=== PATIENT | female | born 1995 | race Caucasian/White ===

== ENCOUNTER 2017-08-28 14:10 | Emergency (ER) | payer BC ==
[~2017-08-28] VITALS: Ht 162.6 cm; Wt 66.2 kg
[2017-08-28 14:14] VITALS: BP_SYST 118
[2017-08-28 14:48] LABS: BASOPHILS % (AUTO) 0.5 % (0.0-2.0); EOSINOPHILS % (AUTO) 0.3 % (0.0-4.0); HEMATOCRIT 40.8 % (36-48); HEMOGLOBIN 14.1 g/dL (12.0-16.0); LYMPHOCYTES % (AUTO) 16.7 % (20.5-51.5); MEAN CORPUSCULAR HEMOGLOBIN 30 pg (27-31); MEAN CORPUSCULAR HGB CONC 35 % (32-36); MEAN CORPUSCULAR VOLUME 86 fL (79.0-98.0); MONOCYTES # (AUTO) 0.5 K/uL (0.0-1.0); MONOCYTES % (AUTO) 7.7 % (1.7-9.3); NEUTROPHILS # (AUTO) 4.7 K/uL (1.8-7.7); NEUTROPHILS % (AUTO) 74.8 % (40.0-70.0); PLATELET COUNT (AUTO) 236 K/uL (130-430); RED BLOOD CELL COUNT(AUTO) 4.73 MIL/uL (4.2-6.2); RED CELL DISTRIBUTION WIDTH 12.8 % (9.0-15.0); WHITE BLOOD COUNT (AUTO) 6.2 K/uL (4.8-10.8)
== END 2017-08-28 15:33 | disposition home or self-care (01) ==
LOC: SED 14:10
DX: J02.8 Acute pharyngitis due to other specified organisms (principal); B97.89 Other viral agents as the cause of diseases classified elsewhere; R03.0 Elevated blood-pressure reading, without diagnosis of hypertension
CPT/HCPCS: 36415; 85025; 86308-TC; 99284

== ENCOUNTER 2018-10-27 19:45 | Inpatient (IN) | payer BC ==
[~2018-10-27] VITALS: Ht 162.6 cm; Wt 71.7 kg
[2018-10-27 19:58] VITALS: BP_SYST 126
--- NOTE | 2018-10-27 20:05 | NUR ---
Patient to ER bed 8 to gown for evaluation. Side rails up. Report given to Dallas SANDOVAL.
--- NOTE | 2018-10-27 20:10 | NUR ---
Pt complains of abdominal pain for the last 10 days. Pt states it started with a headache and was seen at urgent care twice and was prescribed "medications that were stronger than Aleve." Per pt, no relief. Pt states she had a fever of 100 over the weekend. Pt denies N/V. No other injuries/complaints per patient or noted.
--- NOTE | 2018-10-27 20:10 | NUR ---
Per patient, she cannot remember the last time she had a normal bowel movement. This morning, she was able to have a very small BM.
--- NOTE | 2018-10-27 20:26 | NUR ---
ER Dr. Liu at bedside examining patient.
[2018-10-27] MEDS ORDERED: ONDANSETRON HCL 4 MG/2 ML VIAL IVP ONE (20:30)
[2018-10-27] MEDS ORDERED: MORPHINE 2 MG/ML INJ. SYRINGE IVP ONE (20:30)
[2018-10-27] MEDS ORDERED: NACL 0.9% 1,000 ML IV ONE (20:30)
[2018-10-27 20:38] LABS: BILIRUBIN,URINE 2+ (NEGATIVE); BLOOD, URINE 3+ (NEGATIVE); CLARITY/URINE HAZY (CLEAR); COLOR,URINE AMBER (YELLOW); GLUCOSE,URINE NEGATIVE (NEGATIVE); KETONES,URINE 3+ (NEGATIVE); LEUKOCYTE ESTERASE ,URINE NEGATIVE (NEGATIVE); NITRITE, URINE NEGATIVE (NEGATIVE); PROTEIN URINE TRACE (NEGATIVE)
[2018-10-27 20:42] LABS: BASOPHILS # (AUTO) 0.1 K/uL (0.0-0.2); BASOPHILS % (AUTO) 0.4 % (0.0-2.0); EOSINOPHILS % (AUTO) 0.1 % (0.0-4.0); HEMATOCRIT 35.6 % (36-48); HEMOGLOBIN 12.3 g/dL (12.0-16.0); LYMPHOCYTES % (AUTO) 17.1 % (20.5-51.5); MEAN CORPUSCULAR HEMOGLOBIN 30 pg (27-31); MEAN CORPUSCULAR HGB CONC 35 % (32-36); MEAN CORPUSCULAR VOLUME 87 fL (79.0-98.0); MONOCYTES # (AUTO) 0.7 K/uL (0.0-1.0); MONOCYTES % (AUTO) 5.7 % (1.7-9.3); NEUTROPHILS # (AUTO) 8.8 K/uL (1.8-7.7); NEUTROPHILS % (AUTO) 76.7 % (40.0-70.0); PLATELET COUNT (AUTO) 304 K/uL (130-430); RED CELL DISTRIBUTION WIDTH 12.9 % (9.0-15.0); WHITE BLOOD COUNT (AUTO) 11.5 K/uL (4.8-10.8)
[2018-10-27 20:44] LABS: CALCIUM 9.1 mg/dL (8.4-11.0); CREATININE 1.03 mg/dL (0.55-1.30); POTASSIUM 4.1 mmol/L (3.5-5.1)
[2018-10-27 20:49] LABS: ALBUMIN 3.3 g/dL (3.4-4.8); TOTAL BILIRUBIN 0.6 mg/dL (0.0-1.0)
[2018-10-27 21:11] LABS: AMYLASE 37 U/L (0-100); LIPASE 92 U/L (73-393)
[2018-10-27 21:45] LABS: BACTERIA,URINE FEW /HPF (None Seen)
[2018-10-27 21:46] LABS: MUCUS,URINE None Seen /LPF (None Seen)
[2018-10-27] MEDS ORDERED: MAG HYDROX/AL HYDROX/SIMETH 30 ML, DICYCLOMINE HCL 20 MG, LIDOCAINE VISCOUS 2% 15ML (PO... PO ONE ×3 (22:45)
[2018-10-27] MEDS ORDERED: NORE1TAB92 PO (23:13)
--- NOTE | 2018-10-27 23:13 | NUR ---
Medication reconciliation completed with information provided by patient at bedside. Any prior medication reconciliation on file was reviewed and corrected.
[2018-10-28] MEDS ORDERED: LORazepam 1 MG TABLET PO PRN (00:15)
[2018-10-28] MEDS ORDERED: VANCOMYCIN HCL 1,000 MG in NS 250 ML IV ONE (00:30)
[2018-10-28] MEDS ORDERED: cefTRIAXone 1 GM IVPB PREMIX 50 ML IV ONE (00:30)
[2018-10-28] MEDS ORDERED: MORPHINE 2 MG/ML INJ. SYRINGE IVP ONE (00:45)
[2018-10-28] MEDS ORDERED: VANCOMYCIN HCL 1000 MG/VIAL IV ONE (00:57)
[2018-10-28 01:07] LABS: BASOPHILS # (AUTO) 0.4 K/uL (0.0-0.2); BASOPHILS % (AUTO) 3.7 % (0.0-2.0); EOSINOPHILS # (AUTO) 0.2 K/uL (0.0-0.4); EOSINOPHILS % (AUTO) 1.5 % (0.0-4.0); HEMATOCRIT 34.8 % (36-48); HEMOGLOBIN 12.2 g/dL (12.0-16.0); LYMPHOCYTES % (AUTO) 9.1 % (20.5-51.5); MEAN CORPUSCULAR HEMOGLOBIN 31 pg (27-31); MEAN CORPUSCULAR HGB CONC 35 % (32-36); MEAN CORPUSCULAR VOLUME 87 fL (79.0-98.0); MONOCYTES # (AUTO) 0.4 K/uL (0.0-1.0); MONOCYTES % (AUTO) 4.1 % (1.7-9.3); NEUTROPHILS # (AUTO) 8.7 K/uL (1.8-7.7); NEUTROPHILS % (AUTO) 81.6 % (40.0-70.0); PLATELET COUNT (AUTO) 261 K/uL (130-430); RED BLOOD CELL COUNT(AUTO) 3.99 MIL/uL (4.2-6.2); WHITE BLOOD COUNT (AUTO) 10.7 K/uL (4.8-10.8)
--- NOTE | 2018-10-28 01:16 | NUR ---
Transfer to [facility]. IV present no sign or symptom of infiltration.
--- NOTE | 2018-10-28 01:16 | NUR ---
Patient will be admitted to care of Dr. Le. Admitted to Med Surg unit. Will go to room 135. Belongings list completed. Summary report printed. Report will be given at bedside.
--- NOTE | 2018-10-28 01:20 | NUR ---
ADMISSION: The patient, CARLITOS GARNICA, 23 y/o, F admitted by INDER LUNSFORD MD,with the diagnosis of Abdominal Pain . to 135 , will move pt to room 101 A aftwr admission process, was given written information regarding hospital policies, unit procedures and contact persons.
[2018-10-28 01:23] VITALS: BP_SYST 114
[2018-10-28 01:29] LABS: CALCIUM 8.1 mg/dL (8.4-11.0); CREATININE 0.91 mg/dL (0.55-1.30); POTASSIUM 3.7 mmol/L (3.5-5.1)
[2018-10-28 01:44] LABS: ALBUMIN 2.8 g/dL (3.4-4.8); THYROID STIMULATING HORMONE 2.76 uIu/mL (0.36-3.74); TOTAL BILIRUBIN 0.5 mg/dL (0.0-1.0)
--- NOTE | 2018-10-28 01:52 | NUR ---
Consultation Paged Reason for Consultation: Abdominal Pain Was consult called: Y Person who was notified: Adelaida Consulting Physician: Dr. Dawson (Dr. Reza is non clinical advisor) Stock Pitcher Ordering Physician: Dr. Le
[2018-10-28] MEDS: MORPHINE 2 MG/ML INJ. SYRINGE IVP PRN ×4 (01:54→23:31)
--- NOTE | 2018-10-28 01:54 | NUR ---
Pt c/o 8/10 abdominal pain. Morphine 1mg was given IV by nurse Andreas.
[2018-10-28] MEDS ORDERED: KCL 10 mEq in D5/0.45NS 1000mL 1,000 ML IV ONE (02:01)
--- NOTE | 2018-10-28 02:30 | NUR ---
Admission physical assessment done. Pt denies pain or discomfort at this time. IV sites in RFA and LFA are without signs of infiltration. Call light is with pt and bed is in the lowest and locked positions.
[2018-10-28] MEDS: KCL 10 mEq in D5/0.45NS 1000mL 1,000 ML IV SCH ×3 (03:45→20:15)
--- NOTE | 2018-10-28 04:30 | NUR ---
Pt is asleep without any distress noted. IVF of D5 1/2NS W/ 10meq KCL is infusing well at 100ml/hr in RFA. Fall and safety precautions are in place.
--- NOTE | 2018-10-28 06:30 | NUR ---
Pt is awake and not in any distress. IVF is infusing well in RFA. Will endorse to day shift nurse.
[2018-10-28] MEDS: PANTOPRAZOLE SODIUM 40 MG TAB PO SCH (07:51)
[2018-10-28 07:56] VITALS: BP_SYST 101
--- NOTE | 2018-10-28 08:00 | NUR ---
Note Pt resting in bed has sporadic abdominal spasms - left lower abdomen radiating to the right. Pt states she will attempt to eat her clear liquids breakfast tray in a little while. No SOB/resp distress or severe abdominal pain/discomfort noted at this time. IV in right forearm intact and patent infusing IVF's well. Left forearm intact and patent at this time. No needs noted at this time. Call light within reach.
--- NOTE | 2018-10-28 10:00 | NUR ---
Note Dr Le at bedside assessing pt and writing orders. Pt ambulates with steady gait to restroom and back to bed. No needs noted at this time. Call light within reach.
--- NOTE | 2018-10-28 10:05 | NUR ---
DC Planning Assessment Wind Development Director/ Case Management: IRON BENDER met with Pt. at bed side with to conduct DC Planning Assessment family was present. Pt. is employed, resides with her family, he is ambulatory and does not utilize any DME, she attends to her own ADLs. Pt. is insured through [employer]/ [employer]. Pt. is reported that she would prefer to return home after discharge, has not previously utilized HH or SNF, no preference . Pt. is currently pending a GI evaluation. Mother Demario Kenny will be added to person to notify. Pt. and parents requested further information/communication regarding GI follow up. IRON BENDER notified the attending RN per Pts request. No further concerns or inquiry made at this time. Pt. was informed social work instructor will remain available should the need arise.
[2018-10-28 12:17] VITALS: BP_SYST 106
--- NOTE | 2018-10-28 13:30 | NUR ---
Note Pt resting in bed, parents are at bedside the last 3 hours. Questions/concerns were answered at this time. Call light within reach. No needs noted at this time.
[2018-10-28] MEDS: ACETAMINOPHEN 325 MG TABLET PO PRN (14:42)
[2018-10-28 15:56] LABS: HCG,QUAL RESULT NEGATIVE (NEGATIVE)
--- NOTE | 2018-10-28 16:10 | NUR ---
Note Dr Tan came to pt's bedside and assessment was done. Pt and pt's parents' questions/concerns were answered at this time. Orders written and carried out at this time. UA for test was sent to lab at this time. No needs noted at this time. Call light within reach.
[2018-10-28 16:35] VITALS: BP_SYST 97
[2018-10-28] MEDS: LEVOFLOXACIN 500 MG/D5W 100 ML IV SCH (16:46)
[2018-10-28] MEDS: ONDANSETRON HCL 4 MG/2 ML VIAL IVP PRN ×2 (18:21→23:28)
--- NOTE | 2018-10-28 18:35 | NUR ---
Note Pt resting in bed with IVF's infusing well through right hand IV site. Left IV intact and patent at this time. No SOB/resp distress or pain/discomfort noted at this time. Pt was checked on q1' and PRN all shift for needs and care. No needs noted at this time. Call light within reach. Pt transferred to room 107A from room 101A at this time.
--- NOTE | 2018-10-28 19:20 | NUR ---
OPENING NOTES Pt and endorsement received from day shift nurse. Pt is AAOx4, lying in bed. Pt on IVF with D5,0.45NS with 10mEq of KCL at 100ml/hr and infusing well on right FA G22. Pt on saline lock on left FA G20. No complains of pain or discomfort at this time. No signs of acute distress or SOB noted. Encouraged to use call light when needed. Safety precautions in place with 2 side rails up, wheels locked, and bed in lowest level. Call light with pt. Will continue to monitor.
[2018-10-28 20:51] VITALS: BP_SYST 106
[2018-10-28] MEDS: methylPREDNISolone SOD SUCC/PF 62.5 MG/ML VIAL IVP SCH (21:01)
[2018-10-28] MEDS: metroNIDAZOLE 500 mg/NS 100 ML IV SCH (21:01)
--- NOTE | 2018-10-28 21:01 | NUR ---
MED PASS All IV due meds given. No complains of pain and no signs of acute distress noted. IVF infusing well. Safety precautions in place and call light with pt. Will continue to monitor.
--- NOTE | 2018-10-28 23:31 | NUR ---
PAIN MED Pt complained of right sided abdominal pain with a scale of 7/10. BP was 101/64mmHg. Zofran 4mg IVP given first for nausea then Morphine 1mg IVP given as ordered. Educated pt on safety and side effects like dizziness, pt verbalized understanding. No signs of acute distress noted. IVF infusing well. Safety precautions in place and call light with pt. Will continue to monitor.
[2018-10-29 00:35] VITALS: BP_SYST 101
[2018-10-29] MEDS: KCL 10 mEq in D5/0.45NS 1000mL 1,000 ML IV SCH ×2 (02:19→13:46)
--- NOTE | 2018-10-29 03:00 | NUR ---
IV INSERTION Old IV was infiltrated on both arms, new IV inserted on left forearm G22 by JAIME Mead. With good blood return and flushable with saline, pt tolerated well. Reconnected IVF and is infusing well. Will continue to monitor.
[2018-10-29] MEDS: methylPREDNISolone SOD SUCC/PF 62.5 MG/ML VIAL IVP SCH ×3 (05:01→20:50)
[2018-10-29] MEDS: metroNIDAZOLE 500 mg/NS 100 ML IV SCH ×3 (05:01→20:51)
[2018-10-29] MEDS: PANTOPRAZOLE SODIUM 40 MG TAB PO SCH (06:00)
--- NOTE | 2018-10-29 06:26 | NUR ---
CLOSING NOTES Pt is resting in bed with both eyes closed, with visible chest rise and fall with non-labored breathing noted. IVF infusing well. No complains of pain at this time. No signs of acute distress or SOB noted. All needs attended throughout the shift. Safety precautions in place with 2 side rails up, wheels locked and bed in lowest level.Call light with pt. Will endorse to day shift nurse.
[2018-10-29 07:12] LABS: HEPATITIS A AB, IgM Negative (Negative); HEPATITIS B CORE AB, IgM Negative (Negative); HEPATITIS B SURFACE AG Negative (Negative)
[2018-10-29 07:53] VITALS: BP_SYST 111
--- NOTE | 2018-10-29 08:00 | NUR ---
Note Pt resting in bed. No SOB/resp distress or severe pain/discomfort was noted at this time. IV in left forearm intact and patent infusing IVF's well. No needs noted at this time. Call light within reach.
--- NOTE | 2018-10-29 12:00 | NUR ---
Note Pt went to Radiology dept for XR small bowel series at 0920am via wheelchair and returned to room at 1150am. Pt's sister at bedside visiting at this time. No needs noted at this time. Call light within reach.
[2018-10-29 12:28] VITALS: BP_SYST 105
[2018-10-29] MEDS: MORPHINE 2 MG/ML INJ. SYRINGE IVP PRN ×3 (13:44→22:06)
--- NOTE | 2018-10-29 14:43 | NUR ---
Dietitian Recommendations * Recommend continuing clear liquid diet * Nutrition education when medically appropriate LP, RD Please refer to Nutrition Assessment for details. Addendum: 10/29/18 at [address] Amended: Links added.
--- NOTE | 2018-10-29 16:01 | NUR ---
Case mgt: Met w/pt and parents at bedside--pt indicates she had pcp in [place] but hasn't had a chance to find one here yet-she has appointment with GI group Dr. Montero and he is seeing her here as inpt--No anticipated dc planning needs at this time-will f/u for dc planning as needed. Business card given--DIALLO RN
--- NOTE | 2018-10-29 16:11 | NUR ---
SACHINM wilman Tripp in IT--pt wants to sign up on patient portal-- JAIME
[2018-10-29 17:10] VITALS: BP_SYST 119
[2018-10-29] MEDS: LEVOFLOXACIN 500 MG/D5W 100 ML IV SCH (17:12)
--- NOTE | 2018-10-29 17:35 | NUR ---
Note Pt resting in bed at this time. Pt's parents are at bedside at this time - for the last 2 hours or so. Pt denies any needs at this time. Pt's mother assisting pt with hygiene needs and care. Call light within reach.
--- NOTE | 2018-10-29 18:30 | NUR ---
Note Pt sitting up in bed eating her clear liquids dinner tray. Pain tolerable at this time. No SOB/resp distress or severe abdominal pain/discomfort noted at this time. Pt was checked on q1' and PRN all shift for needs and care. IV in left forearm intact and patent infusing IVF's well. No needs noted at this time. Call light within reach. Pt has been ambulating to restroom for voiding with steady gait and IV pole.
--- NOTE | 2018-10-29 19:50 | NUR ---
INITIAL NOTE AT INITIAL ASSESSMENT, PATIENT IS RESTING IN BED, STABLE, NO SIGNS OF RESPIRATORY DISTRESS. PATIENT VERBALIZES TOLERABLE PAIN. PLAN OF CARE FOR THE EVENING IS COMMUNICATED WITH THE PATIENT. PATIENT SUCCESSFULLY DEMONSTRATES CORRECT USAGE OF CALL LIGHT AT THIS TIME. BED IS LOCKED, ALARMED, AND AT THE LOWEST SETTING. FALL AND SAFETY PRECAUTIONS WILL BE IN PLACE THROUGHOUT THE SHIFT.
[2018-10-29 19:55] VITALS: BP_SYST 115
--- NOTE | 2018-10-29 21:50 | NUR ---
PAIN NOTE PRN MEDICATION FOR PATIENT'S PAIN COMPLAINT WILL BE GIVEN AT THIS TIME. CURRENTLY, PATIENT IS RESTING IN BED, STABLE, NO SIGNS OF RESPIRATORY DISTRESS. CALL LIGHT WITHIN REACH. BED IS LOCKED, ALARMED, AND AT THE LOWEST LEVEL.
[2018-10-29] MEDS: ONDANSETRON HCL 4 MG/2 ML VIAL IVP PRN (22:06)
--- NOTE | 2018-10-29 23:50 | NUR ---
NOTE PATIENT IS RESTING IN BED, STABLE, NO SIGNS OF RESPIRATORY DISTRESS. CALL LIGHT IS WITHIN REACH. BED IS LOCKED, ALARMED, AND AT THE LOWEST LEVEL.
[2018-10-30] VITALS: BP_SYST 110
--- NOTE | 2018-10-30 01:50 | NUR ---
NOTE PATIENT IS SLEEPING, STABLE, NO SIGNS OF RESPIRATORY DISTRESS. CALL LIGHT IS WITHIN REACH. BED IS LOCKED, ALARMED, AND AT THE LOWEST LEVEL.
[2018-10-30] MEDS: KCL 10 mEq in D5/0.45NS 1000mL 1,000 ML IV SCH ×3 (02:34→21:24)
--- NOTE | 2018-10-30 03:50 | NUR ---
NOTE PATIENT IS SLEEPING, STABLE, NO SIGNS OF RESPIRATORY DISTRESS. CALL LIGHT IS WITHIN REACH. BED IS LOCKED, ALARMED, AND AT THE LOWEST LEVEL.
--- NOTE | 2018-10-30 05:20 | NUR ---
NOTE PATIENT IS SLEEPING, STABLE, NO SIGNS OF RESPIRATORY DISTRESS. CALL LIGHT IS WITHIN REACH. BED IS LOCKED, ALARMED, AND AT THE LOWEST LEVEL.
[2018-10-30] MEDS: PANTOPRAZOLE SODIUM 40 MG TAB PO SCH (06:27)
[2018-10-30] MEDS: MORPHINE 2 MG/ML INJ. SYRINGE IVP PRN ×3 (06:27→21:11)
[2018-10-30] MEDS: methylPREDNISolone SOD SUCC/PF 62.5 MG/ML VIAL IVP SCH ×2 (06:27→13:02)
[2018-10-30] MEDS: ONDANSETRON HCL 4 MG/2 ML VIAL IVP PRN ×3 (06:28→21:10)
[2018-10-30] MEDS: metroNIDAZOLE 500 mg/NS 100 ML IV SCH ×3 (06:28→21:12)
--- NOTE | 2018-10-30 06:59 | NUR ---
CLOSING NOTE NO BOWEL MOVEMENTS NOTED DURING THE DOUBLE CORNER CUTTER. PRN MEDICATION GIVEN FOR PATIENT'S PAIN COMPLAINT AT THIS TIME. PATIENT IS RESTING IN BED, STABLE, NO SIGNS OF RESPIRATORY DISTRESS. CALL LIGHT IS PLACED WITHIN REACH. BED IS LOCKED, ALARMED, AND AT THE LOWEST LEVEL. WILL CONTINUE TO MONITOR UNTIL SHIFT REPORT IS GIVEN AT BEDSIDE TO AM NURSE.
--- NOTE | 2018-10-30 07:46 | NUR ---
Opening Note receive bedside SBAR report from security shift supervisor RN, patient resting in bed, respirations even and unlabored on room air, no acute distress noted, patient reports pain is controlled at this time, educated patient on use of call light and asked to call for assistance, patient verbalized understanding, call light in reach, educated patient on use of bed alarm for patient safety, patient refusing bed alarm, bed in low and locked position.
[2018-10-30 08:00] VITALS: BP_SYST 110
--- NOTE | 2018-10-30 09:57 | NUR ---
RN Rounds patient sitting up in bed eating breakfast, patient tolerating well, denies and nausea or vomiting, no acute distress noted.
--- NOTE | 2018-10-30 12:23 | NUR ---
RN Rounds patient sitting up in bed eating lunch, tolerating well, patient denies any nausea or vomiting, patient reports pain is controlled at this time.
[2018-10-30 12:29] VITALS: BP_SYST 115
--- NOTE | 2018-10-30 14:21 | NUR ---
Physician Rounds Dr. Reza at bedside examining patient.
[2018-10-30] MEDS ORDERED: BISACODYL 10 MG/SUPPOSITORY RC PRN (14:30)
[2018-10-30] MEDS: LEVOFLOXACIN 500 MG/D5W 100 ML IV SCH (15:30)
--- NOTE | 2018-10-30 16:15 | NUR ---
RN Rounds spoke with patient and patients parents at bedside, informed them of plan of care for today, educated them on purpose and procedure for tap water enema following KUB, patient and patients parents verbalized understanding.
[2018-10-30 17:26] VITALS: BP_SYST 117
--- NOTE | 2018-10-30 18:43 | NUR ---
Tap Water Enema educated patient on purpose and procedure for tap water enema, patient verbalized understanding, 500ml tap water enema given, patient tolerated well, patient denies any cramping or abdominal pain, no bowel movement at this time, no acute distress noted. Addendum: 10/30/18 at 1849 by Pia Talavera RN KUB completed before tap water enema was given as per orders.
--- NOTE | 2018-10-30 19:27 | NUR ---
Closing Note bedside SBAR report given to receiving RN, patient resting in bed, no acute distress noted, patient reports pain is controlled, patient has not had a bowel movement at this time, encouraged patient to ambulate around room, patient verbalized understanding, educated patient on use of call light and asked to call for assistance, patient verbalized understanding, call light in reach, educated patient on use of bed alarm for patient safety, patient refusing bed alarm, bed in low and locked position, care endorsed to mine shifter RN.
[2018-10-30 19:45] VITALS: BP_SYST 112
--- NOTE | 2018-10-30 19:45 | NUR ---
INITIAL NOTE AT INITIAL ASSESSMENT, PATIENT VERBALIZES SHE HAS NOT HAD A BOWEL MOVEMENT YET. PATIENT IS RESTING IN BED, STABLE, NO SIGNS OF RESPIRATORY DISTRESS. PATIENT VERBALIZES TOLERABLE PAIN. PLAN OF CARE FOR THE EVENING IS COMMUNICATED WITH THE PATIENT. PATIENT SUCCESSFULLY DEMONSTRATES CORRECT USAGE OF CALL LIGHT AT THIS TIME. BED IS LOCKED, ALARMED, AND AT THE LOWEST SETTING. FALL AND SAFETY PRECAUTIONS WILL BE IN PLACE THROUGHOUT THE SHIFT.
--- NOTE | 2018-10-30 20:20 | NUR ---
1ST BOWEL MOVEMENT PATIENT HAS HER FIRST BOWEL MOVEMENT, 4 SMALL ROUND HARD PIECES OF STOOL NOTED. STOOL SAMPLE COLLECTED FOR LAB ANALYSIS. PATIENT TOLERATED WELL. WILL CONTINUE TO MONITOR.
--- NOTE | 2018-10-30 20:30 | NUR ---
COMMUNICATION WITH DR. AMRITA CROWE HAS CALLED AT THIS TIME FOR AN UPDATE ON THE PATIENT'S CONSTIPATION. IT WAS COMMUNICATED THAT THE PATIENT HAD A SMALL BOWEL MOVEMENT OF HARD FORMED STOOL AND SOME UPPER GI DISCOMFORT WITHOUT PAIN COMPLAINT. MD HAS REQUESTED TO GIVE DULCOLAX SUPPOSITORY REGARDLESS OF ALREADY HAVING A SMALL BOWEL MOVEMENT. ORDER READ BACK, VERIFIED, AND WILL BE FOLLOWED AT THIS TIME.
--- NOTE | 2018-10-30 22:30 | NUR ---
NOTE PATIENT IS SLEEPING, STABLE, NO SIGNS OF RESPIRATORY DISTRESS. CALL LIGHT IS WITHIN REACH. BED IS LOCKED, ALARMED, AND AT THE LOWEST LEVEL.
--- NOTE | 2018-10-30 23:50 | NUR ---
NOTE PATIENT IS SLEEPING, STABLE, NO SIGNS OF RESPIRATORY DISTRESS. CALL LIGHT IS WITHIN REACH. BED IS LOCKED, ALARMED, AND AT THE LOWEST LEVEL.
[2018-10-31 00:22] VITALS: BP_SYST 116
--- NOTE | 2018-10-31 01:50 | NUR ---
NOTE PATIENT IS SLEEPING, STABLE, NO SIGNS OF RESPIRATORY DISTRESS. CALL LIGHT IS WITHIN REACH. BED IS LOCKED, ALARMED, AND AT THE LOWEST LEVEL.
--- NOTE | 2018-10-31 03:50 | NUR ---
NOTE PATIENT IS SLEEPING, STABLE, NO SIGNS OF RESPIRATORY DISTRESS. CALL LIGHT IS WITHIN REACH. BED IS LOCKED, ALARMED, AND AT THE LOWEST LEVEL.
--- NOTE | 2018-10-31 05:50 | NUR ---
NOTE PATIENT IS SLEEPING, STABLE, NO SIGNS OF RESPIRATORY DISTRESS. CALL LIGHT IS WITHIN REACH. BED IS LOCKED, ALARMED, AND AT THE LOWEST LEVEL.
[2018-10-31] MEDS: PANTOPRAZOLE SODIUM 40 MG TAB PO SCH (06:00)
[2018-10-31] MEDS: metroNIDAZOLE 500 mg/NS 100 ML IV SCH ×3 (06:01→21:11)
[2018-10-31] MEDS: ONDANSETRON HCL 4 MG/2 ML VIAL IVP PRN ×2 (06:10→22:23)
[2018-10-31] MEDS: MORPHINE 2 MG/ML INJ. SYRINGE IVP PRN ×2 (06:10→14:46)
--- NOTE | 2018-10-31 06:45 | NUR ---
CLOSING NOTE ONLY TWO SMALL BOWEL MOVEMENTS NOTED DURING THE DIRECTOR CORPORATE COMPLIANCE. PATIENT VERBALIZES SOME DISCOMFORT AND NAUSEA AT THIS TIME, PRN MEDICATION WILL BE GIVEN AT THIS TIME. PATIENT IS RESTING IN BED, STABLE, NO SIGNS OF RESPIRATORY DISTRESS. CALL LIGHT IS PLACED WITHIN REACH. BED IS LOCKED, ALARMED, AND AT THE LOWEST LEVEL. WILL CONTINUE TO MONITOR UNTIL SHIFT REPORT IS GIVEN AT BEDSIDE TO AM NURSE.
--- NOTE | 2018-10-31 07:20 | NUR ---
Opening Note received bedside SBAR report from manager shift RN, patient resting in bed, respirations even and unlabored on room air, no acute distress noted, patient reports pain is controlled at this time, educated patient on use of call light and asked to call for assistance, patient verbalized understanding, call light in reach, educated patient on use of bed alarm for patient safety, patient refusing bed alarm, bed in low and locked position.
[2018-10-31 08:14] VITALS: BP_SYST 129
[2018-10-31] MEDS: KCL 10 mEq in D5/0.45NS 1000mL 1,000 ML IV SCH ×2 (08:15→14:45)
[2018-10-31] MEDS: POLYETHYLENE GLYCOL 3350, 17 GM/ POWD.PACK PO SCH (08:37)
[2018-10-31] MEDS: methylPREDNISolone SOD SUCC/PF 62.5 MG/ML VIAL IVP SCH (08:38)
--- NOTE | 2018-10-31 09:56 | NUR ---
RN Rounds patient resting in bed, patient reports pain is controlled, no acute distress noted, IV fluids infusing well, no redness or swelling noted at IV site.
[2018-10-31] MEDS: ACETAMINOPHEN 325 MG TABLET PO PRN (10:28)
[2018-10-31 12:07] VITALS: BP_SYST 130
--- NOTE | 2018-10-31 12:11 | NUR ---
RN Rounds patient resting in bed, no acute distress noted, patient reports pain is controlled at this time.
[2018-10-31] MEDS: LEVOFLOXACIN 500 MG/D5W 100 ML IV SCH (15:15)
--- NOTE | 2018-10-31 15:20 | NUR ---
RN Rounds patient resting in bed, patient reports pain is controlled, no acute distress noted, patient denies any nausea or vomiting, patients mother at bedside.
--- NOTE | 2018-10-31 15:37 | NUR ---
Physician Rounds Dr. Le at bedside examining patient, Dr. Le educated patient and patients mother on use of IV steroids and antibiotics for treatment of patients disease process, patient and patients mother verbalized understanding, informed Dr. Le that patient had two small bowel movements on film processing shift supervisor.
[2018-10-31 16:11] VITALS: BP_SYST 128
--- NOTE | 2018-10-31 16:39 | NUR ---
Shower provided patient with clean linen and hygiene item for shower, patient showered with assistance from her mother, tolerated well, patient resting in bed.
--- NOTE | 2018-10-31 17:01 | NUR ---
Physician Rounds Dr. Reza at bedside speaking with patient and patients mother.
[2018-10-31] MEDS ORDERED: GOLYTELY / COLYTE SOLUTION 4 LITERS PO ONE (18:00)
--- NOTE | 2018-10-31 19:19 | NUR ---
Closing Note bedside SBAR report given to receiving RN, patient resting in bed, patient reports pain is controlled at this time, educated patient on use of call light and asked to call for assistance, patient verbalized understanding, call light in reach, educated patient on use of bed alarm for patient safety, patient refusing bed alarm, bed in low and locked position, care endorsed to pumper gauger apprentice RN.
--- NOTE | 2018-10-31 19:30 | NUR ---
ROUNDS PATIENT IN BED, WATCHING TV, VITALS STABLE, DENIES ANY PAIN AT THIS TIME. ASSESSMENT DONE AND DOCUMENTED. SEE FLOWSHEET. NEEDS ATTENDED TO. SAFETY MEASURES IN PLACED. BED IN LOW AND LOCKED POSITION. CALL LIGHT PLACED WITHIN REACH.
--- NOTE | 2018-10-31 22:25 | NUR ---
NAUSEA PATIENT C/O NAUSEA, ZOFRAN 4 MG IV GIVEN ORDERED PRN. WILL CONTINUE TO MONITOR.
--- NOTE | 2018-11-01 00:12 | NUR ---
ROUNDS PATIENT AWAKE, NO COMPLAINTS AT THIS TIME, ENCOURAGED TO CONTINUE TO DRINK THE GOLYTELY. WILL CONTINUE TO MONITOR.
[2018-11-01 00:14] VITALS: BP_SYST 131
--- NOTE | 2018-11-01 02:13 | NUR ---
PATIENT RESTING: Patient resting quietly. No acute distress noted. Vital signs within normal range.
[2018-11-01] MEDS: KCL 10 mEq in D5/0.45NS 1000mL 1,000 ML IV SCH ×3 (03:26→22:29)
--- NOTE | 2018-11-01 04:10 | NUR ---
TAP WATER ENEMA TAP WATER ENEMA DONE, OUTPUT CLEAR, TOLERATED WELL. WILL CONTINUE TO MONITOR.
[2018-11-01] MEDS: metroNIDAZOLE 500 mg/NS 100 ML IV SCH ×3 (05:01→22:14)
--- NOTE | 2018-11-01 06:16 | NUR ---
CLOSING NOTES PATIENT ASLEEP AT THIS TIME, RESPIRATIONS EVEN AND UNLABORED, NO SIGNS OF ANY PAIN AND DISCOMFORT NOTED. ALL NEEDS ATTENDED TO. SAFETY MEASURES MAINTAINED.CALL LIGHT PLACED WITHIN REACH.
[2018-11-01 06:25] LABS: HEMATOCRIT 34.8 % (36-48); HEMOGLOBIN 12.2 g/dL (12.0-16.0); LYMPHOCYTES # (AUTO) 0.8 K/uL (1.0-5.5); LYMPHOCYTES % (AUTO) 7.6 % (20.5-51.5); MEAN CORPUSCULAR HEMOGLOBIN 30 pg (27-31); MEAN CORPUSCULAR HGB CONC 35 % (32-36); MEAN CORPUSCULAR VOLUME 86 fL (79.0-98.0); MONOCYTES # (AUTO) 1.2 K/uL (0.0-1.0); NEUTROPHILS # (AUTO) 8.7 K/uL (1.8-7.7); NEUTROPHILS % (AUTO) 81.4 % (40.0-70.0); PLATELET COUNT (AUTO) 289 K/uL (130-430); RED BLOOD CELL COUNT(AUTO) 4.04 MIL/uL (4.2-6.2); RED CELL DISTRIBUTION WIDTH 12.8 % (9.0-15.0); WHITE BLOOD COUNT (AUTO) 10.7 K/uL (4.8-10.8)
[2018-11-01] MEDS: PANTOPRAZOLE SODIUM 40 MG TAB PO SCH (06:45)
[2018-11-01 06:57] LABS: INR 1.1 (0.8-1.2); PROTHROMBIN TIME 11.1 SECS (9.5-12.5)
[2018-11-01 07:00] LABS: ALBUMIN 2.8 g/dL (3.4-4.8); C-REACTIVE PROTEIN QUANT 2.2 mg/dL (0-0.5); CALCIUM 8.5 mg/dL (8.4-11.0); CREATININE 0.89 mg/dL (0.55-1.30); TOTAL BILIRUBIN 0.3 mg/dL (0.0-1.0)
--- NOTE | 2018-11-01 07:20 | NUR ---
Opening Note received bedside SBAR report from retail shift leader RN, patient resting in bed, respirations even and unlabored on room air, patient reports pain is controlled, no acute distress noted, educated patient on use of call light and asked to call for assistance, patient verbalized understanding, call light in reach, educated patient on use of bed alarm for patient safety, patient refusing bed alarm, bed in low and locked position.
[2018-11-01 08:00] VITALS: BP_SYST 120
--- NOTE | 2018-11-01 08:24 | NUR ---
PAGED PAGED INDER LOZANO AT [phone] SPOKE WITH KALYAN.
--- NOTE | 2018-11-01 08:38 | NUR ---
Spoke with Physician Spoke with Dr. Chen, informed her of potassium 3.0, new medication orders received, verified with read back.
[2018-11-01] MEDS ORDERED: POTASSIUM CHLORIDE 40 MEQ, LIDOCAINE JECT 2% PF 100 MG 50 MG in NS 250 ML IV ONE (08:45)
[2018-11-01] MEDS: POLYETHYLENE GLYCOL 3350, 17 GM/ POWD.PACK PO SCH (09:00)
[2018-11-01] MEDS: methylPREDNISolone SOD SUCC/PF 62.5 MG/ML VIAL IVP SCH (09:16)
--- NOTE | 2018-11-01 09:29 | NUR ---
RN Rounds patient resting in bed, patient NPO awaiting procedure today, patient reports pain is controlled, IV infusing well, no redness or swelling noted at IV site.
--- NOTE | 2018-11-01 11:35 | NUR ---
RN Rounds patient resting in bed, patient reports pain is controlled, patient denies any nausea or vomiting, IV infusing well, no redness or swelling noted at IV site.
[2018-11-01 12:40] VITALS: BP_SYST 137
--- NOTE | 2018-11-01 12:58 | NUR ---
Nutrition F/U RD reviewed pt's current EMR including diet Hx, physician notes, nursing notes, pertinent labs/meds/procedures, care trends and care activity. Current Diet Order: Clear liquid diet x 4 days Subjective information: Pt is for colonoscopy today per RN report. Per RN, pt was not served w/ breakfast today and will remain on NPO until procedure. Pt had multiple fleet enema yesterday and the dulcolax suppository did not help. Per EMR, PO intake is Good (75% average of 3 meals). Current PO intake: Good Estimated Energy Expenditure (kcals/day) 0337-0180 kcal/day (25-30 kca/kg Adj IBW for obesity, maintenance) Estimated Protein Required (g/day) 47-59 gm/day (0.8-1 gm/kg Adj IBW for obesity, maintenance) Estimated Fluid Required (l/day) 2.2-2.5 L/day (30-35 ml/kg CBW for maintenance) Problem/Etiology/Signs/Symptoms Complicated GI function related to possible GI dysfunction as evidenced by pt report of irregular BM and abd pain. (*ongoing) Expected Outcomes/Goals - Monitor advancement of diet, appetite, and PO intakes w/ goal of pt meeting at least 75% of estimated nutritional needs, labs trending WNL, normal GI function, and skin integrity/wt maintenance Dietitian Recommendations * Recommend continuing NPO per MD. * If/when medically appropriate, advance diet. Follow Up High Risk: F/U in 2-3days
--- NOTE | 2018-11-01 13:07 | NUR ---
Dietitian Recommendations * Recommend continuing NPO per MD. * If/when medically appropriate, advance diet. Please see nutrition F/U note for details. PRATEEK DAMICO
[2018-11-01] MEDS ORDERED: MIDAZOLAM HCL 5 MG/5 ML VIAL ONE (13:18)
[2018-11-01] MEDS ORDERED: SIMETHICONE 40 MG/0.6 ML ML ONE (13:19)
--- NOTE | 2018-11-01 13:39 | NUR ---
to GI lab patient taken to GI lab via wheelchair by GI golf course laborer, no acute distress noted.
[2018-11-01] MEDS: fentaNYL CITRATE/PF 100 MCG/2 ML AMP ONE ×3 (14:56→15:03)
[2018-11-01] MEDS: MIDAZOLAM HCL 5 MG/5 ML VIAL ONE ×4 (14:56→15:03)
[2018-11-01] MEDS ORDERED: DIPHENHYDRAMINE INJ 50 MG/ML VIAL ONE (15:36)
--- NOTE | 2018-11-01 16:00 | NUR ---
Physician Rounds Dr. Dawson at bedside speaking with patients mother, patient in GI lab at this time.
--- NOTE | 2018-11-01 16:10 | NUR ---
back from GI lab patient brought back to room via wheelchair by RN from GI lab, patient resting in bed, patients mother at bedside.
[2018-11-01] MEDS: MORPHINE 2 MG/ML INJ. SYRINGE IVP PRN (16:15)
[2018-11-01 16:24] VITALS: BP_SYST 138
[2018-11-01] MEDS ORDERED: POTASSIUM CHLORIDE 10 MEQ TAB.PRT.SR PO ONE (17:00)
[2018-11-01] MEDS ORDERED: ZOLPIDEM TARTRATE 5 MG TABLET PO PRN (17:00)
[2018-11-01] MEDS: LEVOFLOXACIN 500 MG/D5W 100 ML IV SCH (17:56)
--- NOTE | 2018-11-01 18:00 | NUR ---
RN Rounds patient sitting up in bed eating dinner, patient denies any pain or nausea, no acute distress noted, patient tolerating diet well.
--- NOTE | 2018-11-01 19:08 | NUR ---
Closing Note SBAR report given to insulation cupola charger, patient resting in bed, patient reports pain is controlled, no acute distress noted, educated patient on use of call light and asked to call for assistance, patient verbalized understanding, call light in reach, educated patient on use of bed alarm for patient safety, patient refusing bed alarm, bed in low and locked position, care endorsed to night auditor RN.
[2018-11-01 20:00] VITALS: BP_SYST 94
--- NOTE | 2018-11-01 20:00 | NUR ---
PATIENT IS RESTING COMFORTABLY IN BED AT THIS TIME. PT IS ALERT AND ORIENTED X4. PT HAS NO REPORTS OF PAIN, NO SIGNS OF DISTRESS NOTED. PT'S VSS. PT HAS BEEN UPDATED ON PLAN OF CARE. PT STATES THAT SHE WOULD LIKE TO HAVE HER AMBIEN TO GET SOME SLEEP. WILL ADMINISTER PRN AMBIEN TO PT PER MD ORDERS. BED IN LOWEST POSITION, CALL LIGHT WITHIN REACH. WILL CONTINUE TO MONITOR AND TREAT PT
[2018-11-02] VITALS: BP_SYST 105
--- NOTE | 2018-11-02 | NUR ---
PATIENT IS ASLEEP AT THIS TIME. PT DENIES ANY REPORTS OF PAIN, NO SIGNS OF DISTRESS NOTED. PT'S VSS. BED IN LOWEST POSITION, CALL LIGHT WITHIN REACH. WILL CONTINUE TO MONITOR AND TREAT PT
--- NOTE | 2018-11-02 05:00 | NUR ---
PATIENT IS RESTING COMFORTABLY IN BED AT THIS TIME. PT IS ALERT AND ORIENTED X4. PT HAS NO REPORTS OF PAIN, NO SIGNS OF DISTRESS NOTED. BED IN LOWEST POSITION, CALL LIGHT WITHIN REACH. WILL CONTINUE TO MONITOR AND TREAT PT
[2018-11-02] MEDS: PANTOPRAZOLE SODIUM 40 MG TAB PO SCH (06:08)
[2018-11-02] MEDS: metroNIDAZOLE 500 mg/NS 100 ML IV SCH ×2 (06:08→13:27)
[2018-11-02 06:13] LABS: CALCIUM 8.4 mg/dL (8.4-11.0); CREATININE 0.89 mg/dL (0.55-1.30)
--- NOTE | 2018-11-02 07:50 | NUR ---
Routine Patient asleep with no distress noted. Patient stable.
[2018-11-02 08:05] VITALS: BP_SYST 120
[2018-11-02] MEDS: methylPREDNISolone SOD SUCC/PF 62.5 MG/ML VIAL IVP SCH (09:13)
[2018-11-02] MEDS: POLYETHYLENE GLYCOL 3350, 17 GM/ POWD.PACK PO SCH (09:13)
--- NOTE | 2018-11-02 09:15 | NUR ---
Routine Scheduled medications given per order. Patient denies any pain at this time. Patient stable.
[2018-11-02 12:27] VITALS: BP_SYST 124
[2018-11-02] MEDS: KCL 10 mEq in D5/0.45NS 1000mL 1,000 ML IV SCH (13:09)
--- NOTE | 2018-11-02 13:10 | NUR ---
Routine Patient resting comfortably in bed. New IVF bag started. Patient stable.
--- NOTE | 2018-11-02 13:30 | NUR ---
Routine Scheduled IV abx given per order.
[2018-11-02] MEDS: LEVOFLOXACIN 500 MG/D5W 100 ML IV SCH (15:37)
[2018-11-02 15:39] LABS: BASOPHILS % (AUTO) 0.1 % (0.0-2.0); HEMATOCRIT 40.6 % (36-48); HEMOGLOBIN 14.3 g/dL (12.0-16.0); LYMPHOCYTES # (AUTO) 0.4 K/uL (1.0-5.5); LYMPHOCYTES % (AUTO) 4.1 % (20.5-51.5); MEAN CORPUSCULAR HEMOGLOBIN 30 pg (27-31); MEAN CORPUSCULAR HGB CONC 35 % (32-36); MEAN CORPUSCULAR VOLUME 86 fL (79.0-98.0); MONOCYTES # (AUTO) 0.1 K/uL (0.0-1.0); NEUTROPHILS # (AUTO) 8.4 K/uL (1.8-7.7); NEUTROPHILS % (AUTO) 94.8 % (40.0-70.0); PLATELET COUNT (AUTO) 295 K/uL (130-430); RED BLOOD CELL COUNT(AUTO) 4.73 MIL/uL (4.2-6.2); RED CELL DISTRIBUTION WIDTH 12.9 % (9.0-15.0); WHITE BLOOD COUNT (AUTO) 8.8 K/uL (4.8-10.8)
--- NOTE | 2018-11-02 15:40 | NUR ---
Routine Scheduled IV ABX given per order. Patient stable with mother at bedside.
[2018-11-02 16:27] VITALS: BP_SYST 114
[2018-11-02 16:40] VITALS: BP_SYST 114
--- NOTE | 2018-11-02 17:40 | NUR ---
Discharge instructions Both written and verbal discharge instructions given to patient. Exit Care provided. Patient verbalized understanding. MD discussed with patient the results and treatment provided. Ambulatory with steady gait for discharge to home. Patient in stable condition, ID band removed. IV catheter removed, intact and dressing applied, no active bleeding. Rx of prednisone, pepcid, flagyl, and levaquin given. Patient educated on pain management. All belongings sent with patient.
--- NOTE | 2018-11-02 17:45 | NUR ---
Discharge Patient patient discharged to home in stable condition; accompanied by mother and other family member.
== END 2018-11-02 17:45 | disposition home or self-care (01) | DRG 386 ==
LOC: SED 19:45 → SMU 10-28 00:12
PROVIDERS: ADMIT Internal Medicine; ATTEND Internal Medicine
PROC: 0DBL8ZX Excision of Transverse Colon, Via Natural or Artificial Opening Endoscopic, Diagnostic (ICD-10-PCS; 2018-11-01)
PROC: 0DBP8ZX Excision of Rectum, Via Natural or Artificial Opening Endoscopic, Diagnostic (ICD-10-PCS; 2018-11-01)
PROC: 0DBF8ZX Excision of Right Large Intestine, Via Natural or Artificial Opening Endoscopic, Diagnostic (ICD-10-PCS; 2018-11-01)
PROC: 0DBG8ZX Excision of Left Large Intestine, Via Natural or Artificial Opening Endoscopic, Diagnostic (ICD-10-PCS; 2018-11-01)
PROC: 0DBB8ZX Excision of Ileum, Via Natural or Artificial Opening Endoscopic, Diagnostic (ICD-10-PCS; principal; 2018-11-01 13:00)
DX: K50.00 Crohn's disease of small intestine without complications (principal); E44.0 Moderate protein-calorie malnutrition; N39.0 Urinary tract infection, site not specified; K52.9 Noninfective gastroenteritis and colitis, unspecified; E87.6 Hypokalemia; K59.00 Constipation, unspecified; Z68.27 Body mass index [BMI] 27.0-27.9, adult
CPT/HCPCS: 36415; 74018; 74250-TC; 80048; 80053; 80074; 81000-TC; 82150-TC; 82272; 83605; 83690-TC; 83735-TC; 84443-TC; 84703; 85025; 85610-TC; 85651-TC; 86140; 86480; 87040-TC; 87045-TC; 87046; 87086; 87177; 87230-TC; 88305; 89055; 96361; 96365; 96368; 96375; 99285; J0696; J1200; J1956; J2001; J2250; J2270; J2405; J2930; J3010; J3370; J3480; J3490; J7050